=== PATIENT | female | born 1970 | race American Indian/Alaskan Native ===

== ENCOUNTER 2019-02-05 20:57 | Emergency (ER) | payer SELFPAY ==
--- NOTE | 2019-02-05 22:23 | Event Note ---
ED Screening Note Date of service: 02/05/19 Time: 22:21 ED Screening Note: 48 y/o female comes in for right breast pain that "just hurts" times 1 month. Pain has gotten worst. Smokes THC. This initial assessment/diagnostic orders/clinical plan/treatment(s) is/are subject to change based on patients health status, clinical progression and re- assessment by fellow clinical providers in the ED. Further treatment and workup at subsequent clinical providers discretion. Patient/guardian urged not to elope from the ED as their condition may be serious if not clinically assessed and managed. Initial orders include:
--- NOTE | 2019-02-06 00:47 | Emergency Department Report ---
ED Female HPI - General Chief complaint: Urogenital-Female Stated complaint: RT BREAST PAIN Time Seen by Provider: 02/05/19 22:20 Source: patient Mode of arrival: Ambulatory Limitations: No Limitations - History of Present Illness Initial comments: This is a 48-year-old -[place] female who presents to the emergency room with right breast pain and painful lump for one month. Past medical history of hypertension. Patient states her last mammogram was 5-6 years ago. She denies injury, nipple discharge, fever, warmth, redness or swelling to right breast. MD Complaint: other (right breast pain) Onset/Timin -: month(s) Severity: moderate Severity scale (0 -10): 6 Quality: aching Consistency: intermittent Improves with: none Are you Now?: No Associated Symptoms: denies other symptoms - Related Data Sexually active: Yes Previous Rx's Medication Instructions Recorded Last Taken Type Amlodipine Besylate [Norvasc] 5 mg PO DAILY #30 tablet 02/06/19 Unknown Rx hydroCHLOROthiazide [Hctz] 12.5 mg PO QDAY #30 capsule 02/06/19 Unknown Rx Allergies Allergy/AdvReac Type Severity Reaction Status Date / Time promethazine [From Phenergan] Allergy Unknown Verified 02/05/19 21:25 ED Review of Systems ROS: Stated complaint: RT BREAST PAIN Other details as noted in HPI Constitutional: denies: chills, fever Respiratory: denies: cough, shortness of breath, wheezing Cardiovascular: denies: chest pain, palpitations Gastrointestinal: denies: abdominal pain, nausea, diarrhea Musculoskeletal: denies: back pain, joint swelling, arthralgia Skin: denies: rash, lesions Neurological: denies: headache, weakness, paresthesias Psychiatric: denies: anxiety, depression Other: right breast pain ED Past Medical Hx - Past Medical History Previous Medical History?: Yes Hx Hypertension: Yes - Surgical History Past Surgical History?: No - Social History Smoking Status: Current Every Day Smoker Substance Use Type: Marijuana - Medications Home Medications: Home Medications Medication Instructions Recorded Confirmed Last Taken Type Amlodipine Besylate [Norvasc] 5 mg PO DAILY #30 tablet 02/06/19 Unknown Rx hydroCHLOROthiazide [Hctz] 12.5 mg PO QDAY #30 capsule 02/06/19 Unknown Rx ED Physical Exam - General Limitations: No Limitations General appearance: alert, in no apparent distress, obese (morbidly) - Respiratory Respiratory exam: Present: normal lung sounds bilaterally. Absent: respiratory distress - Cardiovascular Cardiovascular Exam: Present: regular rate, normal rhythm. Absent: systolic murmur, diastolic murmur, rubs, gallop - GI/Abdominal GI/Abdominal exam: Present: soft, normal bowel sounds. Absent: distended, tenderness, guarding, rebound, rigid - Neurological Exam Neurological exam: Present: alert, oriented X3 - Psychiatric Psychiatric exam: Present: normal affect, normal mood - Skin Skin exam: Present: warm, dry, intact, normal color. Absent: rash - Other Other exam information: BREASTS: Right breast fibrocystic changes, breast tenderness, mobile half centimeter mass 9:00. Both breasts, No chest deformity, asymmetry. Normal contours. No nodules, or axillary adenopathy. Left breast, no tenderness. No nipple discharge bilaterally. No dimpling, muscle tenderness, dominant mass, nipple discharge, axillary adenopathy bilaterally ED Course Vital Signs 02/05/19 02/06/19 02/06/19 21:07 01:21 02:58 Temperature 98.3 F Pulse Rate 86 65 60 Respiratory 20 16 Rate Blood Pressure 195/107 Blood Pressure 201/113 134/90 [Left] O2 Sat by Pulse 100 99 Oximetry ED Medical Decision Making - Medical Decision Making Patient was examined by me. Patient is nontoxic appearing and stable. Blood pressure elevated. PMH of HTN and off medication for years. A palpable half a millimeter mass and it 9:00 on right breast, tenderness, mobile, no dimpling, discharge, or deformity. Both breasts have fibrocystic changes. Patient informed she will need an outpatient mammogram. Referral to wholesale representative for mammogram and possible diagnostic ultrasound. Asymptomatic hypertension. Patient denies chest pain, palpitations, dizziness, visual changes, or shortness of breath. Start amlodipine and hydrochlorothiazide. Instructed to take [id number] Tylenol or ibuprofen for pain. Follow up with PCP or return to the ER with worsening symptoms. Patient discharged home in stable condition. Critical care attestation.: If time is entered above; I have spent that time in minutes in the direct care of this critically ill patient, excluding procedure time. ED Disposition Clinical Impression: Pain of right breast, Asymptomatic hypertension Disposition: TO HOME OR SELFCARE Is pt being admited?: No Condition: Stable Instructions: Breast Self-exam (ED), Mammogram (ED), Hypertension (ED) Additional Instructions: Follow up with a wholesale representative from the referral list below for a mammogram. Prescriptions: hydroCHLOROthiazide [Hctz] 12.5 mg PO QDAY #30 capsule Amlodipine Besylate [Norvasc] 5 mg PO DAILY #30 tablet Referrals: CED JOHNSON MD [Primary Care Provider] - 3-5 Days [facility] [Other] - 3-5 Days [facility] [Provider Group] - 3-5 Days [facility] [Provider Group] - 3-5 Days Forms: Work/School Release Form(ED) Time of Disposition: 00:58
[2019-02-06] MEDS ORDERED: cloNIDine 0.2 MG TAB PO ONE (01:00)
[2019-02-06 02:58] VITALS: BP 134/90
== END 2019-02-06 03:10 | disposition home or self-care (01) ==
LOC: ED 20:57
DX: N64.4 Mastodynia (principal); I10 Essential (primary) hypertension; F17.200 Nicotine dependence, unspecified, uncomplicated; F12.10 Cannabis abuse, uncomplicated; Z88.8 Allergy status to other drugs, medicaments and biological substances